=== PATIENT | female | born 1970 | race Caucasian/White ===

== ENCOUNTER 2021-10-31 08:02 | Outpatient (CLI) | payer BC, SELFPAY ==
--- OUTSIDE RECORDS SUMMARY | 2021-10-04 10:24 | XMS_ITS | Continuity of Care Document ---
:1970 Author Care Team Providers Name Role Phone SEEN Primary Care Physician Unavailable LEIGH Abad Attending Physician Allergies, Adverse Reactions, Alerts No known allergies Social History Smoking Status Status Start Date End Date Date of Observat ion Never smoked tobacco May 232021 (finding) 8:47am Observation Status Observation Response Date of Response Where do you live? Own home/apt April 08, 2018 12:20am With whom do you live? 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 m Escitalopram Disconti 5 MG PO Daily November Rx paper copy Oxalate nued , faxed to 2020 [facility] 9:51am [facility] [phone]. Escitalopram Disconti 5 MG PO Daily July Oxalate nued , , (Lexapro) 5 2020 2020 Mg TAB 10:33am 3:21pm Ethinyl Disconti 1 TAB PO Daily Julyr Estradiol/Lev nued , y onorgestrel 2018, (Lutera) 0.1 12:06pm 2019 Mg/0.02 Mg 7:55am TAB Ethinyl Disconti 1 TAB PO Daily April Estradiol/Lev nued , , onorgestrel 2018 2018 (Lutera) 0.1 10:17am 12:06p Mg/0.02 Mg m TAB Ethinyl Disconti 1 TAB PO Daily r Estradiol/Lev nued r , y onorgestrel 2017, (Lutera) 0.1 1:51pm 2018 Mg/0.02 Mg 10:17a TAB m Ethinyl Disconti 1 EA PO Daily Estradiol/Lev nued r , er onorgestrel 2016 07, (Lutera) 0.1 3:34pm 2017 Mg/0.02 Mg 4:55pm TAB Ethinyl Disconti 1 TAB PO Daily Novem Estradiol/Lev nued r 30, er onorgestrel 2016, (Lutera) 0.1 8:25am 2017 Mg/0.02 Mg 1:51pm TAB Ethinyl Disconti 1 EA PO Daily July Estradiol/Lev nued 4th, er onorgestrel 2016 04, (Lutera) 0.1 9:54am 2016 Mg/0.02 Mg 3:34pm TAB Ethinyl Disconti 1 EA PO Daily April Estradiol/Lev nued 5th, , onorgestrel 2016 2016 (Lutera) 0.1 9:07am 9:54am Mg/0.02 Mg TAB Ethinyl Disconti 1 EA PO Daily Januaryr Estradiol/Lev nued , y 5th, onorgestrel 2015 2016 (Lutera) 0.1 4:24pm 9:07am Mg/0.02 Mg TAB Ethinyl Disconti 1 EA PO Daily January Estradiol/Lev nued , r onorgestrel 2015 03, (Lutera) 0.1 8:48am 2015 Mg/0.02 Mg 4:24pm TAB Ethinyl Disconti 1 EA PO Daily 28 Septemb Octobe Estradiol/Lev nued er r onorgestrel , , (Lutera) 0.1 2014 2014 Mg/0.02 Mg 3:28pm 8:48am TAB Ethinyl Disconti 1 EA PO Daily Septem Estradiol/Lev nued er 3rd, libby onorgestrel 2014, (Lutera) 0.1 9:01am 2014 Mg/0.02 Mg 6:05pm TAB Ethinyl Disconti 1 EA PO Daily 84 Septem Estradiol/Lev nued er libby onorgestrel , , (Lutera) 0.1 2013 2014 Mg/0.02 Mg 4:29pm 9:01am TAB Ethinyl Disconti 1 EA PO Daily 84 Septem Estradiol/Lev nued er libby onorgestrel , 16, (Lutera) 0.1 2012 2013 Mg/0.02 Mg 12:36pm 4:29pm TAB Ethinyl Disconti 1 EA PO Daily Novemberem Estradiol/Lev nued 2nd, libby onorgestrel 2012, (Lutera) 0.1 1:24pm 2012 Mg/0.02 Mg 12:36p TAB m Ethinyl Disconti 1 EA PO Daily November Estradiol/Lev nued , , onorgestrel 2011 2012 (Lutera) 0.1 9:31am 1:24pm Mg/0.02 Mg TAB Ethinyl Disconti 1 EA PO Daily October Estradiol/Lev nued , 10th, onorgestrel 2011 2011 (Lutera) 0.1 8:16am 9:31am Mg/0.02 Mg TAB Ethinyl Disconti 1 EA PO Daily November Estradiol/Lev nued 3rd, 5th, onorgestrel 2010 2011 (Lutera) 0.1 12:10pm 8:16am Mg/0.02 Mg TAB Ethinyl Disconti 1 EA PO Daily November Estradiol/Lev nued , onorgestrel 2010 (Lutera) 0.1 12:10p Mg/0.02 Mg m TAB Influenza A Disconti 0.5 ML IM Once 1 (H1n1) nued r 5th, er Monoval 2009 5th, Vaccine 9:48am 2008 (Influenza A 9:49am (H1n1) Vaccine) INJ Influenza Disconti 0.5 ML IM Once 1 Decembe Decemb Virus Vaccine nued r 4th, er (Fluzone 2017 07, Quadrivalent 6:34pm 2017 (3 Yrs And 6:35pm Older)2017- ) 1 Inj INJ Influenza Disconti 0.5 ML IM Once Januaryobe Virus Vaccine nued , r Split 2014, (Fluzone 8:44am 2014 Quadrivalent 9:08am (3 Yrs And Older)2014- ) 1 Inj INJ Levonorgestre Disconti 1 TAB PO Daily July Pat ient needs l & Eth nued , to schedule Estradiol 2010 2010 annual exa m. (Alesse) 1 11:06am 3:41pm Tab TAB Levonorgestre Disconti 1 TAB PO Daily September l & Eth nued , Estradiol 2009 2010 (Alesse) 1 2:04pm 11:06a Tab TAB m No Home Meds Disconti August nued 2010 3:41pm Norgestimate- Disconti 1 TABLET PO Daily June Ethinyl nued , Estradiol 2009 2009 (Ortho-Cyclen 11:18am 2:04pm ) 0.25 Mg/0.035 Mg TAB Simethicone Disconti 80 MG PO Four Times Apruar nued Daily as y needed 2019 7:55am Tetanus-Dipht Disconti 0.5 ML IM Once 1 Februar Februa heria Toxoids nued y , ry (Td 2020 12, (Tetanus/Diph 6:06pm 2020 theria 6:42pm Toxoid) 1 Ml INJ Venlafaxine Disconti 37.5 MG PO Daily 90 July Hcl nued y , , (Venlafaxine 2020 2020 Hcl Er) 37.5 5:28pm 10:33a Mg CAPCR m Immunizations Immunization Event Date Not Given Dose Bankruptcy Paralegal Lot Vac cine Reason Number Number Informatio n Statement (VIS) Deta roma COVID-19 Pfizer July 07, 1 PFIZER-BIONTECH [id number] 2021 COVID-19 Pfizer July 28, 2 PFIZER-BIONTECH [id number] 2021 Influenza January 11 Sanofi [id number] 2014 Influenza March 14 SANOFI [id number] 2017 Tetanus/Diptheri September 10 a 2010 Tetanus/Diptheri May 15 MASS BIOLO a 2020 Tdap September 25 (adolescent/adul 2006 t) Advance Directives Advance Directive Response Recorded Date/Time Does Pt have Health Care No February 13 015 9:11am Directive? Has patient completed a Y - not on file May 23 022 8:47am Health Care Directive? Insurance Providers Guarantor Jacek Morales Address [address] [place] [id number] Contact Info. Home Phone: Payer Policy Id Coverage Id Subscriber's Subscriber Id Effective E xpiration Name Date Date Blue [id number] Jacek Morales [facility] [id number] Plan of Treatment Future Tests Future scheduled test information is unavailable Pending Tests Pending diagnostic test information is unavailable Future Visits Future appointment information is unavailable Referrals to Other Providers Referral information is unavailable Future Procedures Future procedure information is unavailable Future Medications Future medication information is unavailable Patient Instructions Colonoscopy (GEN)
--- NOTE | 2021-10-31 08:15 | CRLHL7_ITS ---
For Patients: As a result of the Century Cures Act, medical imaging exams and procedure reports are released immediately into your electronic medical record. You may view this report before your referring provider. If you have questions, please contact your health care provider. BILATERAL MAMMOGRAM WITH COMPUTER-AIDED DETECTION TECHNIQUE: CC and MLO views were obtained. These mammographic images have been obtained using full-field digital technique. These mammographic images were interpreted with the benefit of computer-aided detection. COMPARISON FILM: 09/21/2020, 06/20/2019, 05/05/2018. FINDINGS: There are scattered areas of fibroglandular density IMPRESSION: There is no radiographic evidence for malignancy. ASSESSMENT: BI-RADS Category 1: Negative RECOMMENDATION: Routine screening mammogram in 1 year. A lay language report of this examination will be provided to the patient. Gunner Russo M.D. Diagnostic Radiologist [email or web address] LENCHO/roger / be/Dictated by: Gunner Russo MD @ 10/31/2021 9:34:00 AM (Electronically Signed)
== END 2021-10-31 08:03 | disposition home or self-care (01) ==
LOC: MAMMO 08:03
PROVIDERS: Visit Provider Physician Assistant
DX: Z12.31 Encounter for screening mammogram for malignant neoplasm of breast (principal)
CPT/HCPCS: 77063; 77067

== ENCOUNTER 2022-06-20 08:49 | Outpatient (CLI) | payer BC, SELFPAY | END 2022-06-20 08:50 | disposition home or self-care (01) | PROVIDERS: Visit Provider Physician Assistant | DX: Z01.419 Encounter for gynecological examination (general) (routine) without abnormal findings (principal); R68.82 Decreased libido; R63.5 Abnormal weight gain; Z13.6 Encounter for screening for cardiovascular disorders; Z13.1 Encounter for screening for diabetes mellitus | CPT/HCPCS: 80061; 82947; 84403; 84443 ==